=== PATIENT | male | born 2000 | race African-American/Black ===

== ENCOUNTER 2025-04-11 17:29 | Emergency (ER) | payer SELFPAY ==
[~2025-04-11] VITALS: Ht 182.9 cm; Wt 94.3 kg
[2025-04-11 17:33] VITALS: BP 118/78
[2025-04-11] MEDS ORDERED: QUET100T PO (17:47)
[2025-04-11] MEDS ORDERED: BUSP15TA3 PO (17:47)
[2025-04-11] MEDS ORDERED: HYDR25CA PO (17:47)
[2025-04-11] MEDS ORDERED: METH-806 PO (17:47)
[2025-04-11] MEDS ORDERED: BUSP10TA3 PO (17:47)
[2025-04-11] MEDS ORDERED: HYDROCODONE/APAP 10-325 MG TABLET PO ONE ×2 (18:30)
[2025-04-11] MEDS ORDERED: ONDANSETRON ODT 4 MG TAB.RAPDIS SL ONE (18:30)
[2025-04-11] MEDS ORDERED: ACETAMINOPHEN 500 MG TABLET ONE (18:37)
[2025-04-11] MEDS ORDERED: PENICILLIN V POTASSIUM 500 MG TABLET ONE (18:37)
[2025-04-11] MEDS: PENICILLIN V POTASSIUM 500 MG TABLET PO ONE (18:38)
[2025-04-11] MEDS: ACETAMINOPHEN 500 MG TABLET PO ONE (18:38)
[2025-04-11] MEDS ORDERED: PENI500T PO (18:40)
[2025-04-11] MEDS ORDERED: ACET-2605 PO (18:40)
[2025-04-11 18:49] VITALS: BP 118/78; TEMP 98.5; O2SAT 97
== END 2025-04-11 18:51 | disposition home or self-care (01) ==
LOC: ER 17:35
DX: K08.89 Other specified disorders of teeth and supporting structures (principal); F12.90 Cannabis use, unspecified, uncomplicated; F32.A Depression, unspecified; F41.9 Anxiety disorder, unspecified; F19.10 Other psychoactive substance abuse, uncomplicated; Z79.899 Other long term (current) drug therapy
CPT/HCPCS: A4606; A4663; A9150